=== PATIENT | female | born 1990 | race Two or more races ===

== ENCOUNTER 2019-10-22 00:14 | Emergency (ER) | payer BC ==
[2019-10-22] MEDS ORDERED: Sulfamethoxazole/Trimethoprim 800-160 MG Tab PO ONE (01:08)
--- NOTE | 2019-10-22 01:12 | EDM.PDOC ---
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 She reports 2 days of symptoms. She's had intermittent urinary frequency. She endorses suprapubic pain as well as some pain in the flanks, right greater than left. She rates that pain as 6-8/10. No fever. The pain is constant. Menses ended 4 days ago. No history of UTI or similar symptoms in the past. No nausea or vomiting. Otherwise feels well. no history of renal stones. 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 - Past Surgical History GI Surgical History: Reports: Appendectomy Social & Family History - Family History Family Medical History: Noncontributory - Tobacco Use Smoking Status *Q: Never Smoker Second Hand Smoke Exposure: No - Caffeine Use Caffeine Use: Reports: None - Recreational Drug Use Recreational Drug Use: No ED ROS GENERAL - Review of Systems Review Of Systems: See Below Constitutional: Reports: No Symptoms HEENT: Reports: No Symptoms Respiratory: Reports: No Symptoms Cardiovascular: Reports: No Symptoms Endocrine: Reports: No Symptoms GI/Abdominal: Reports: No Symptoms : Reports: Dysuria, Flank Pain, Hematuria Musculoskeletal: Reports: No Symptoms Skin: Reports: No Symptoms Neurological: Reports: No Symptoms Psychiatric: Reports: No Symptoms Hematologic/Lymphatic: Reports: No Symptoms Immunologic: Reports: No Symptoms ED EXAM, RENAL/ - Physical Exam Exam: See Below Exam Limited By: No Limitations General Appearance: Alert, No Apparent Distress Ears: Normal External Exam Nose: Normal Inspection Throat/Mouth: Normal Inspection Head: Atraumatic Neck: Normal Inspection Respiratory/Chest: No Respiratory Distress Cardiovascular: Regular Rate, Rhythm GI/Abdominal: No Distention, Tender (supapubic) Back Exam: Normal Inspection, CVA Tenderness (R), CVA Tenderness (L), Other ( mild bilateral CVA tenderness) Extremities: Normal Inspection Neurological: Alert, Oriented Psychiatric: Normal Affect, Normal Mood Skin Exam: Warm, Dry Course - Vital Signs Last Recorded V/S: Last Vital Signs Temp 36.9 C 10/22/19 00:29 Pulse 89 10/22/19 00:29 Resp 14 10/22/19 00:29 BP 138/83 10/22/19 00:29 Pulse Ox 98 10/22/19 00:29 - Orders/Labs/Meds Labs: Laboratory Tests 10/22/19 Range/Units 00:26 Urine Color Yellow (YELLOW) Urine Appearance Cloudy A (CLEAR) Urine pH 7.0 (5.0-8.0) Ur Specific [place] 1.025 (1.008-1.030) Urine Protein Negative (NEGATIVE) mg/dL Urine Glucose (UA) Negative (NEGATIVE) mg/dL Urine Ketones Negative (NEGATIVE) mg/dL Urine Occult Blood Moderate H (NEGATIVE) Urine Nitrite Negative (NEGATIVE) Urine Bilirubin Negative (NEGATIVE) Urine Urobilinogen 0.2 (0.2-1.0) EU/dL Ur Leukocyte Esterase Negative (NEGATIVE) Urine RBC 5-10 H (0-5) Urine WBC 0-5 (0-5) Ur Epithelial Cells Moderate Amorphous Sediment Not seen Urine Bacteria Moderate Urine Mucus Not seen Meds: Medications Discontinued Medications Generic Name Dose Route Start Last Admin Trade Name Freq PRN Reason Stop Dose Admin Trimethoprim/Sulfamethoxazole 1 tab 10/22/19 01:08 10/22/19 01:15 Septra Ds PO 10/22/19 01:09 1 tab ONETIME ONE Administration - Re-Assessments/Exams Free Text/Narrative Re-Assessment/Exam: 29-year-old presents with concerns of dysuria, urinary frequency, hematuria, flank pain. On exam she is well-appearing. Normal vitals. UA is particularly consistent with infection, does have some microscopic hematuria. Given her suprapubic tenderness as well as flank discomfort think it's reasonable to treat her for urinary infection regardless of her UA findings. I prescribed her 3 days of Bactrim. Since her presentation is somewhat atypical asked her to follow up with PCP to assure resolution of symptoms. 10/22/19 01:24 Departure - Departure Time of Disposition: 01:11 Disposition: Home, Self-Care 01 Clinical Impression: UTI, Urinary tract infectious disease - Discharge Information Prescriptions: Sulfamethoxazole/Trimethoprim [Bactrim Ds Tablet] 1 each PO BID #5 tablet Instructions: Urinary Tract Infection, Adult Referrals: PCP,None [Primary Care Provider] - Forms: ED Department Discharge Additional Instructions: Please follow up with your primary doctor to ensure your symptoms are improving. Sepsis Event Note - Evaluation Sepsis Screening Result: No Definite Risk - Focused Exam Vital Signs: Vital Signs Temp Pulse Resp BP Pulse Ox 10/22/19 00:29 36.9 C 89 14 138/83 98 Date Exam was Performed: 10/22/19 Time Exam was Performed: 01:20
== END 2019-10-22 01:20 | disposition home or self-care (01) ==
LOC: JP.ED 00:14
DX: N39.0 Urinary tract infection, site not specified (principal)
CPT/HCPCS: 81001; 99284; A9270

== ENCOUNTER 2020-01-17 17:24 | Emergency (ER) | payer BC ==
[2020-01-17] MEDS ORDERED: Ketorolac 60 MG/2 ML SDV IM ONE (18:23)
--- NOTE | 2020-01-17 18:29 | EDM.PDOC ---
ED HPI GENERAL MEDICAL PROBLEM - General Chief Complaint: Abdominal Pain Stated Complaint: RT SIDE PAIN Time Seen by Provider: 01/17/20 18:15 Source of Information: Reports: Patient, Family History Limitations: Reports: Language Barrier, Other (no or minimal old records ) - History of Present Illness INITIAL COMMENTS - FREE TEXT/NARRATIVE: 29 yo female here with several days of intermittent pain to most of the R side of her body from her chest to her knee on that side. Has not been to the clinic. No self tx. No hx of the same. Does not feel ill. Sx's getting worse. Pain somewhat worse with deep breathing. Onset: Gradual Onset Date: 01/13/20 Duration: Day(s):, Getting Worse Location: Reports: Chest, Abdomen, Lower Extremity, Right Quality: Reports: Other (? 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 ) Endocrine: Reports: No Symptoms GI/Abdominal: Reports: Abdominal Pain (pain on R side of abdomen when she gets the pains). Denies: Black Stool, Bloody Stool, Constipation, Diarrhea, Distension, Hematemesis, Hematochezia, Vomiting : Reports: No Symptoms Musculoskeletal: Reports: Leg Pain (R lateral thigh intermittently) Skin: Reports: No Symptoms Neurological: Reports: No Symptoms ED EXAM, GENERAL - Physical Exam Exam: See Below Exam Limited By: No Limitations General Appearance: Alert, WD/WN, No Apparent Distress Eye Exam: Bilateral Eye: Normal Inspection Ears: Normal External Exam, Normal Canal, Hearing Grossly Normal Ear Exam: Bilateral Ear: Auricle Normal, Canal Normal Nose: Normal Inspection, No Blood Throat/Mouth: Normal Inspection, Normal Lips, Normal Oropharynx, Normal Voice, No Airway Compromise Head: Atraumatic, Normocephalic Neck: Normal Inspection Respiratory/Chest: No Respiratory Distress, Lungs Clear, Normal Breath Sounds, No Accessory Muscle Use Cardiovascular: Regular Rate, Rhythm, No Edema GI/Abdominal: Normal Bowel Sounds, Soft, No Distention, Tender (subjective R sided tenderness, no objective findings). No: Non-Tender, Distended, Guarding, Rigid, Rebound, Abnormal Bowel Sounds Back Exam: Normal Inspection Extremities: Normal Inspection, Normal Range of Motion, Non-Tender, No Pedal Edema, Other (walks without a limp) Neurological: Alert, Oriented, CN II-XII Intact, Normal Cognition, No Motor/ Sensory Deficits Psychiatric: Normal Affect, Normal Mood Skin Exam: Warm, Dry, Intact, Normal Color, No Rash Course - Vital Signs Text/Narrative:: Urine was crystal clear so test not run. - Orders/Labs/Meds Orders: Active Orders 24 hr Category Date Time Status UA W/MICROSCOPIC [URIN] Stat Lab 01/17/20 18:23 Stop Req Labs: Laboratory Tests 01/17/20 Range/Units 18:24 WBC 5.0 (4.5-11.0) K/uL RBC 4.36 (3.30-5.50) M/uL Hgb 13.8 (12.0-15.0) g/dL Hct 40.4 (36.0-48.0) % MCV 93 (80-98) fL MCH 32 H (27-31) pg MCHC 34 (32-36) % Plt Count 319 (150-400) K/uL Meds: Medications Discontinued Medications Generic Name Dose Route Start Last Admin Trade Name Freq PRN Reason Stop Dose Admin Ketorolac Tromethamine 60 mg 01/17/20 18:23 01/17/20 18:32 Toradol IM 01/17/20 18:24 60 mg ONETIME ONE Administration - Re-Assessments/Exams Free Text/Narrative Re-Assessment/Exam: 01/17/20 20:32 Partial relief with Toradol. Departure - Departure Time of Disposition: 20:32 Disposition: Home, Self-Care 01 Condition: Fair Clinical Impression: Pain, abdominal, unknown etiology Clinical Impression: (Ruled Out): Upper abdominal pain of unknown etiology - Discharge Information *PRESCRIPTION DRUG MONITORING PROGRAM REVIEWED*: No *COPY OF PRESCRIPTION DRUG MONITORING REPORT IN PATIENT ARPAN: No Instructions: Pain Without a Known Cause Referrals: PCP,None [Primary Care Provider] - Forms: ED Department Discharge Additional Instructions: Take acetaminophen up to 1000 mg every 6 hrs as needed. Add ibuprofen 600 mg every 6 hrs with food as needed for additional pain relief starting after 2 am tonight. See your doctor for recheck if your pain is still present tomorrow. Sepsis Event Note - Evaluation Sepsis Screening Result: No Definite Risk - Focused Exam Date Exam was Performed: 01/17/20 Time Exam was Performed: 20:32 - My Orders Last 24 Hours: My Active Orders 01/17/20 18:23 UA W/MICROSCOPIC [URIN] Stat - Assessment/Plan Last 24 Hours: My Active Orders 01/17/20 18:23 UA W/MICROSCOPIC [URIN] Stat
== END 2020-01-17 20:46 | disposition home or self-care (01) ==
LOC: JP.ED 17:24
DX: R10.9 Unspecified abdominal pain (principal)
CPT/HCPCS: 36415; 85027; 96372; 99284; J1885

== ENCOUNTER 2020-11-29 16:55 | Emergency (ER) | payer BC ==
--- NOTE | 2020-11-29 17:38 | EDM.PDOC ---
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 My understanding is she is around 4 to 5 weeks along and this is her third , the others ended in miscarriage. She has no fevers or chills. No nausea or vomiting. Bleeding is minimal but pain is significant. 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 Psychiatric History: Reports: Anxiety - Past Surgical History Head Surgeries/Procedures: Reports: None GI Surgical History: Reports: Appendectomy <Scott Henry - Last Filed: 12/03/20 16:16> Social & Family History - Family History Family Medical History: No Pertinent Family History - Tobacco Use Tobacco Use Status *Q: Never Tobacco User - Caffeine Use Caffeine Use: Reports: Coffee - Recreational Drug Use Recreational Drug Use: No <Scott Henry - Last Filed: 12/03/20 16:16> ED ROS GENERAL - Review of Systems Review Of Systems: See Below Constitutional: Denies: Fever, Chills HEENT: Reports: No Symptoms Respiratory: Reports: No Symptoms Cardiovascular: Reports: No Symptoms GI/Abdominal: Reports: Other (Lower abdominal and pelvic cramping and pain) : Reports: No Symptoms Musculoskeletal: Reports: No Symptoms Skin: Reports: No Symptoms Neurological: Reports: No Symptoms <Scott Henry - Last Filed: 12/03/20 16:16> ED EXAM - Physical Exam GI/Abdominal Exam: Tender (mild midline pain just below the umbilicus). No: Non-Tender, Distended, Guarding, Rigid, Rebound <Rjoelio Cool - Last Filed: 11/29/20 20:00> - Physical Exam Exam: See Below Exam Limited By: No Limitations General Appearance: Alert, No Apparent Distress Eye Exam: Bilateral Eye: Normal Inspection Head: Atraumatic Respiratory/Chest: No Respiratory Distress, Lungs Clear Cardiovascular: Regular Rate, Rhythm GI/Abdominal Exam: Soft (Female) Exam: Other (Vaginal exam was deferred in lieu of ultrasound) Neurological: Alert, Oriented Psychiatric: Normal Affect, Normal Mood Skin Exam: Warm, Dry <Scott Henry - Last Filed: 12/03/20 16:16> Course <Rojelio Cool G - Last Filed: 11/29/20 20:00> <Scott Henry - Last Filed: 12/03/20 16:16> - Vital Signs Last Recorded V/S: Last Vital Signs Temp 98.6 F 11/29/20 17:24 Pulse 85 11/29/20 17:24 Resp 16 11/29/20 17:24 BP 113/53 L 11/29/20 17:24 Pulse Ox 100 11/29/20 17:24 - Orders/Labs/Meds Labs: Laboratory Tests 11/29/20 11/29/20 11/29/20 Range/Units 17:36 17:36 19:54 WBC 7.7 (4.5-11.0) K/uL RBC 4.04 (3.30-5.50) M/uL Hgb 12.9 (12.0-15.0) g/dL Hct 36.3 (36.0-48.0) % MCV 90 (80-98) fL MCH 32 H (27-31) pg MCHC 36 (32-36) % Plt Count 287 (150-400) K/uL Neut % (Auto) 73 H (36-66) % Lymph % (Auto) 19 L (24-44) % [place] % (Auto) 8 H (2-6) % Eos % (Auto) 0 L (2-4) % Baso % (Auto) 0 (0-1) % HCG, Quant 08513 H (0-6) mIU/mL Urine Color Yellow (YELLOW) Urine Appearance Clear (CLEAR) Urine pH 7.0 (5.0-8.0) Ur Specific [place] 1.010 (1.008-1.030) Urine Protein Negative (NEGATIVE) mg/dL Urine Glucose (UA) Negative (NEGATIVE) mg/dL Urine Ketones Negative (NEGATIVE) mg/dL Urine Occult Blood Small H (NEGATIVE) Urine Nitrite Negative (NEGATIVE) Urine Bilirubin Negative (NEGATIVE) Urine Urobilinogen 0.2 (0.2-1.0) EU/dL Ur Leukocyte Esterase Negative (NEGATIVE) Urine RBC 0-5 (0-5) Urine WBC 0-5 (0-5) Ur Epithelial Cells Rare Amorphous Sediment Not seen Urine Bacteria Rare Urine Mucus Not seen Meds: Medications Discontinued Medications Generic Name Dose Route Start Last Admin Trade Name Freq PRN Reason Stop Dose Admin Acetaminophen 1,000 mg 11/29/20 19:32 11/29/20 19:38 Acetaminophen 500 Mg Tab PO 11/29/20 19:33 1,000 mg ONETIME ONE Administration Polyethylene Glycol 17 gm 11/29/20 20:01 11/29/20 20:11 Polyethylene Glycol 3350 Powder 17 Gm Packet PO 11/29/20 20:02 17 gm ONETIME ONE Administration - Radiology Interpretation Free Text/Narrative:: Pelvic US-IUP noted, HR 169 (Rojelio Cool) - Re-Assessments/Exams Free Text/Narrative Re-Assessment/Exam: 11/29/20 17:38 CBC and quantitative beta-hCG will be drawn. If quantitative beta-hCG is over 2500, an ultrasound can be considered. Care was turned over to Dr. Cool. (Scott Henry) Departure - Departure Time of Disposition: 19:23 Condition: Fair - Discharge Information *PRESCRIPTION DRUG MONITORING PROGRAM REVIEWED*: Not Applicable *COPY OF PRESCRIPTION DRUG MONITORING REPORT IN PATIENT ARPAN: Not Applicable <Rojelio Cool - Last Filed: 11/29/20 20:00> <Scott Henry - Last Filed: 12/03/20 16:16> - Departure Disposition: Home, Self-Care 01 Clinical Impression: Normal intrauterine on ultrasound in first trimester Spotting complicating Qualifiers: Trimester: first trimester Qualified Code(s): O26.851 - Spotting complicating , first trimester - Discharge Information Instructions: First Trimester of , [id number] Referrals: Yolanda Max MD [Primary Care Provider] - Forms: ED Department Discharge, ED Return to Work/School Form Additional Instructions: Acetaminophen for pain relief. See your doctor tomorrow if having any further symptoms. Take Miralax OR Metamucil OR Citrucel daily with a large volume of water to keep your stools soft and regular. Your urine test and your ultrasound today were normal showing no problems. Sepsis Event Note (ED) - Evaluation Sepsis Screening Result: No Definite Risk <Scott Henry - Last Filed: 12/03/20 16:16>
[2020-11-29] MEDS ORDERED: Acetaminophen 500 MG Tab PO ONE (19:32)
[2020-11-29] MEDS ORDERED: Polyethylene Glycol 3350 Powder 17 GM Packet PO ONE (20:01)
--- NOTE | 2020-12-01 08:54 | US ---
INDICATION: pain, first trimester preg COMPARISON: None FINDINGS: Single live IUP with crown-rump length of 0.87 cm. This correlates to a 6 week 6 day gestation. heart rate: 169 BPM. TAD is 07/19/2021 Other findings: There is a 2.2 cm cyst in the right ovary IMPRESSION: Single live IUP at 6 weeks 6 days TAD 07/19/2021 No abnormality seen
== END 2020-11-29 20:19 | disposition home or self-care (01) ==
LOC: JP.ED 16:55
DX: O26.851 Spotting complicating pregnancy, first trimester (principal); Z3A.01 Less than 8 weeks gestation of pregnancy
CPT/HCPCS: 36415; 76801; 81001; 84702; 85025; 99282; 99284; A9270

== ENCOUNTER 2021-02-02 22:04 | Emergency (ER) | payer BC ==
[2021-02-02] MEDS ORDERED: Aluminum Hydroxide/Magnesium Hydroxide/Simethicone Susp 30 ML Cup PO STA (23:20)
--- NOTE | 2021-02-02 23:37 | EDM.PDOC ---
ED HPI GENERAL MEDICAL PROBLEM - General Chief Complaint: Abdominal Pain Stated Complaint: 4 MONTHS , STOMACH PAIN Time Seen by Provider: 02/02/21 22:33 Source of Information: Reports: Patient History Limitations: Reports: No Limitations - History of Present Illness INITIAL COMMENTS - FREE TEXT/NARRATIVE: Adrianna is a 30-year-old Belarusian-speaking female presenting to the ED for evaluation of upper abdominal pain involving the epigastric and left upper quadrant that started yesterday and has been moving a little bit more [place] today. The patient has been a little more gassy than usual. She is 4 months and feeling the baby move. She denies any fever, but has had chills. She has had a mild cough without any production. The gas pain has been crampy and worsens when she is upright and walking. It last a few seconds at a time. She denies any difficulty with bowel movements or any urinary symptoms. She has had some mild nausea with no vomiting. 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 Musculoskeletal History: Reports: Other (See Below) Other Musculoskeletal History: carpal tunnel right Psychiatric History: Reports: Anxiety - Infectious Disease History Infectious Disease History: Reports: None - Past Surgical History Head Surgeries/Procedures: Reports: None GI Surgical History: Reports: Appendectomy Social & Family History - Family History Family Medical History: No Pertinent Family History - Caffeine Use Caffeine Use: Reports: Coffee ED ROS GENERAL - Review of Systems Review Of Systems: See Below Constitutional: Reports: Chills HEENT: Reports: No Symptoms Respiratory: Reports: Cough. Denies: Sputum Cardiovascular: Reports: No Symptoms Endocrine: Reports: No Symptoms GI/Abdominal: Reports: Abdominal Pain (Epigastric and left upper quadrant), Nausea. Denies: Constipation, Diarrhea, Vomiting : Reports: No Symptoms Musculoskeletal: Reports: No Symptoms Skin: Reports: No Symptoms Neurological: Reports: No Symptoms Psychiatric: Reports: No Symptoms Hematologic/Lymphatic: Reports: No Symptoms Immunologic: Reports: No Symptoms ED EXAM, GI/ABD - Physical Exam Exam: See Below Exam Limited By: No Limitations General Appearance: Alert, No Apparent Distress, Anxious Eyes: Bilateral: EOMI Nose: Clear Rhinorrhea (Mild rhinorrhea with nasal swelling) Throat/Mouth: Normal Inspection, Normal Lips, Normal Oropharynx, Normal Voice, No Airway Compromise Head: Atraumatic, Normocephalic Neck: Normal Inspection, Supple, Non-Tender, Full Range of Motion Respiratory/Chest: No Respiratory Distress, Lungs Clear, Normal Breath Sounds Cardiovascular: Normal Peripheral Pulses, Regular Rate, Rhythm GI/Abdominal Exam: Normal Bowel Sounds, Soft, Distended (Mild distention of the upper abdomen.), Tender (Epigastric tenderness with tympany to percussion over this region.), Other (Gravid uterus with the fundus just below the umbilicus. Uterus is nontender.). No: Guarding, Rigid, Rebound Back Exam: Normal Inspection, Full Range of Motion Neurological: Alert, Oriented, Normal Cognition, No Motor/Sensory Deficits Psychiatric: Normal Affect, Normal Mood Lymphatic: No Adenopathy Course - Vital Signs Last Recorded V/S: Last Vital Signs Temp 36.9 C 02/02/21 22:41 Pulse 71 02/02/21 22:41 Resp 16 02/02/21 22:41 BP 133/61 02/02/21 22:41 Pulse Ox 99 02/02/21 22:41 - Orders/Labs/Meds Orders: Active Orders 24 hr Category Date Time Status BASIC METABOLIC PANEL,BMP [CHEM] Stat Lab 02/02/21 23:02 Received UA W/MICROSCOPIC [URIN] Stat Lab 02/02/21 22:55 Ordered Labs: Laboratory Tests 02/02/21 Range/Units 23:02 WBC 9.3 (4.5-11.0) K/uL RBC 3.94 (3.30-5.50) M/uL Hgb 12.4 (12.0-15.0) g/dL Hct 36.3 (36.0-48.0) % MCV 92 (80-98) fL MCH 32 H (27-31) pg MCHC 34 (32-36) % Plt Count 280 (150-400) K/uL Neut % (Auto) 76.3 H (36-66) % Lymph % (Auto) 16.2 L (24-44) % [place] % (Auto) 7.1 H (2-6) % Eos % (Auto) 0.2 L (2-4) % Baso % (Auto) 0.2 (0-1) % Meds: Medications Discontinued Medications Generic Name Dose Route Start Last Admin Trade Name Tatiana PRN Reason Stop Dose Admin Al Hydroxide/Mg Hydroxide 30 ml 02/02/21 23:20 Aluminum Hydroxide/Magnesium Hydroxide/Simethicone Susp 30 Ml Cup PO 01/08 03/29 23:21 ONETIME STA - Re-Assessments/Exams Free Text/Narrative Re-Assessment/Exam: 02/02/21 23:35 I performed a limited bedside ultrasound to evaluate the fetus. There is a single intrauterine live fetus with a heart rate of 145 bpm by M- mode. The biparietal diameter calculates out to 16 weeks 5 days. It is an anterior placenta. There is normal amount of amniotic fluid. Normal activity. I reviewed the patient's labs showing a normal CBC, basic metabolic profile, and urinalysis. The patient was given Maalox 30 mL by mouth for flatus and likely has some mild constipation due to the . We discussed management of this with increased fluid intake. Patient may take Maalox sparingly for any gas pain. Departure - Departure Time of Disposition: 23:38 Disposition: Home, Self-Care 01 Clinical Impression: Excessive flatus, Abdominal pain affecting - Discharge Information Instructions: Abdominal Pain During , Abdominal Bloating Referrals: Nilay Arndt MD [Primary Care Provider] - Care Plan Goals: You may use Maalox sparingly for your gas pain. Please drink plenty of fluids. I have a prescription for you for the [employer] [facility] machines for Zofran for your nausea. This is safe to take during your . Sepsis Event Note (ED) - Evaluation Sepsis Screening Result: No Definite Risk - Focused Exam Vital Signs: Vital Signs Temp Pulse Resp BP Pulse Ox 02/02/21 22:41 36.9 C 71 16 133/61 99 - Problem List & Annotations (1) Abdominal pain affecting SNOMED Code(s): 796354260 Code(s): O26.899 - OTH RELATED CONDITIONS, UNSPECIFIED TRIMESTER; R10.9 - UNSPECIFIED ABDOMINAL PAIN Status: Acute Priority: Medium Current Visit: Yes (2) Excessive flatus SNOMED Code(s): 65428667 Code(s): R14.3 - FLATULENCE Status: Acute Priority: Medium Current Visit: Yes - Problem List Review Problem List Initiated/Reviewed/Updated: Yes - My Orders Last 24 Hours: My Active Orders 02/02/21 22:55 UA W/MICROSCOPIC [URIN] Stat 02/02/21 23:02 BASIC METABOLIC PANEL,BMP [CHEM] Stat - Assessment/Plan Last 24 Hours: My Active Orders 02/02/21 22:55 UA W/MICROSCOPIC [URIN] Stat 02/02/21 23:02 BASIC METABOLIC PANEL,BMP [CHEM] Stat
== END 2021-02-03 00:09 | disposition home or self-care (01) ==
LOC: JP.ED 22:04
DX: O99.891 Other specified diseases and conditions complicating pregnancy (principal); R14.3 Flatulence; R10.13 Epigastric pain; R10.12 Left upper quadrant pain; Z3A.16 16 weeks gestation of pregnancy
CPT/HCPCS: 36415; 80048; 81001; 85025; 99284; A9270